=== PATIENT | female | born 1995 | race Caucasian/White ===

== ENCOUNTER → 2020-05-21 07:18 | Outpatient (CLI) | payer OTHER, SELFPAY ==
--- NOTE | 2020-05-21 07:29 | MRI_ITS ---
STUDY: MRI RIGHT WRIST WITHOUT CONTRAST REASON FOR EXAM: Female, 24 years old. WRIST PAIN history of prior tendon release 12/2017, pain x 4 years TECHNIQUE: Standardized fat and water weighted pulse sequences were obtained in all 3 orthogonal planes. COMPARISON: None. FINDINGS: Mild postsurgical scarring is seen in the periphery of the tendon sheath of the first extensor compartment with normal underlying pollicis tendons. No tendon sheath fluid is seen. No tears or tendinosis is demonstrated. Mild tenosynovitis of the second extensor compartment is present with normal underlying tendons. Normal visualized distal radius and ulna. Normal distal radioulnar Articulation (DRUJ). Normal triangular fibrocartilaginous complex (TFCC). Normal carpal bones. Normal radiocarpal, intercarpal and midcarpal articulations. Normal pisotriquetral articulation. Normal visualized interosseous scapholunate ligament. Normal visualized dorsal (extrinsic) ligaments. Normal visualized volar (extrinsic) ligaments. Normal extensor tendons. Normal flexor tendons. Normal carpal tunnel with a normal median nerve. Normal carpometacarpal articulation of the thumb. Normal second through fifth carpometacarpal articulations. Normal visualized metacarpal bones. There is no demonstrated soft tissue abnormality. MRI/Upper Ext Joint Only(Routine) IMPRESSION: 1. Mild postsurgical scarring is seen in the periphery of the tendon sheath of the first extensor compartment with normal underlying pollicis tendons. No tendon sheath fluid is seen. No tears or tendinosis is demonstrated. 2. Mild tenosynovitis of the second extensor compartment is present with normal underlying tendons. Electronically Signed: Eldon Jean Baptiste MD at 21:50 EST , Service support ,
== END ==
DX: M25.531 Pain in right wrist (principal)
CPT/HCPCS: 73221

== ENCOUNTER → 2020-07-12 07:55 | Outpatient (CLI) | payer OTHER, SELFPAY ==
--- NOTE | 2020-07-12 08:02 | RAD_ITS ---
STUDY: HYSTEROSALPINGOGRAM. REASON FOR EXAM: Female, 24 years old. INFERTILITY FLUOROSCOPY TIME (if supplied): ( 53 seconds .) minutes/seconds. TECHNIQUE: History of a supplement was performed by the station mechanic. Imaging was provided. COMPARISON: None. FINDINGS: Prominent midline septum in the uterus suggestive of a septated uterus. The fallopian tubes are not opacified. RAD/Salpingogram IMPRESSION: Septated uterus. The fallopian tubes are not opacified. Electronically Signed: Abdirahman Aguilar MD at 13:18 EDT , Service support ,
--- NOTE | 2020-07-12 08:39 | PCM.OPRPT ---
Report of Operation Date of Procedure: 07/12/20 Pre-Operative Diagnosis: infertility Post-Operative Diagnosis: same, bilateral tubal blockage. Possible uterine septum Surgery/Procedure Performed:: hystersalpingogram (HSG) Description of Surgical Findings:: speculum placed- cervix cleaned with betadine - anterior lip of cervix grasped with tenaculum. HSG catheter placed without difficulty. three attempts made as patient was painful and kept pushing HSG catheter out. Images demonstrate no spillage of dye to abdominal cavity from tubes bilaterally and possible septate uterus. Findings c/w uterine anomaly and bilateral tubal blockage Type of Anesthesia:: None Specimen's removed: none Drains: none Estimated Blood Loss (mL): none Fluids Replaced: NA Description of Procedure: speculum placed- cervix cleaned with betadine - anterior lip of cervix grasped with tenaculum. HSG catheter placed without difficulty. three attempts made as patient was painful and kept pushing HSG catheter out. Images demonstrate no spillage of dye to abdominal cavity from tubes bilaterally and possible septate uterus. Findings c/w uterine anomaly and bilateral tubal blockage Grafts/Implants Used: none - Complications none
== END ==
PROVIDERS: PCP Family Medicine; Referring Provider Obstetrics & Gynecology; Visit Provider Obstetrics & Gynecology
DX: N97.9 Female infertility, unspecified (principal)
CPT/HCPCS: 58340; 74740; Q9967